=== PATIENT | male | born 1945 | race Caucasian/White ===

== ENCOUNTER 2018-03-13 04:15 | Observation (INO) | payer BC, OTHER ==
[~2018-03-13] VITALS: Ht 172.7 cm; Wt 100.0 kg
[~2018-03-13 04:15] MED LIST: 3 BP MEDS PO; CALC600T34 PO; COUM5TAB PO; CYCL5TAB PO; FISH1000 PO; TYLE3 PO
[2018-03-13 04:29] VITALS: BP 139/80; PULSE 103; RESP 18; TEMP 98.7; O2SAT 95
[2018-03-13] MEDS ORDERED: AMLO5TAB2 PO (04:33)
[2018-03-13] MEDS ORDERED: DOXA1TAB35 PO (04:33)
[2018-03-13] MEDS ORDERED: WARF-23 PO (04:33)
[2018-03-13] MEDS ORDERED: ATOR40TA16 PO (04:33)
[2018-03-13] MEDS ORDERED: LOSA100T PO (04:33)
[2018-03-13 05:00] LABS: AUTOMATED NEUTROPHIL # 4.6 TH/MM3 (1.8-7.7); BASOPHIL % 0.4 % (0.0-2.0); EOSINOPHIL # 0.1 TH/MM3 (0-0.4); EOSINOPHIL % 1.4 % (0.0-4.0); HEMATOCRIT 43.1 % (39.0-51.0); HEMOGLOBIN 13.9 GM/DL (13.0-17.0); LYMPH % 22.1 % (9.0-44.0); LYMPHOCYTE # 1.5 TH/MM3 (1.0-4.8); MEAN CELL VOLUME 94.3 FL (80.0-100.0); MEAN CORPUSCULAR HEMOGLOBIN 30.5 PG (27.0-34.0); MEAN CORPUSCULAR HGB CONC 32.3 % (32.0-36.0); MEAN PLATELET VOLUME 8.7 FL (7.0-11.0); MONO % 8.1 % (0.0-8.0); MONOCYTE # 0.5 TH/MM3 (0-0.9); PLATELET COUNT 159 TH/MM3 (150-450); RED BLOOD COUNT 4.57 MIL/MM3 (4.50-5.90); RED CELL DISTRIBUTION WIDTH 14.4 % (11.6-17.2); WHITE BLOOD COUNT 6.7 TH/MM3 (4.0-11.0)
--- NOTE | 2018-03-13 05:08 | RADRPT ---
EXAM DATE: 03/13/2018 4:57 AM EDT AGE/SEX: 72 years / Male INDICATIONS: Trauma. CLINICAL DATA: This is the patient's initial encounter. Patient reports that signs and symptoms have been present for 1 day and indicates a pain score of 0/10. MEDICAL/SURGICAL HISTORY: . Smoker. . Valve replacement. COMPARISON: No prior exams available for comparison. FINDINGS: The patient is status post sternotomy. The cardiac silhouette is enlarged. There is a prosthetic valv e present. There is a mild to moderate left pleural effusion. There is diffuse indistinctness of the parenchymal markings. CONCLUSION: Cardiomegaly. Mild to moderate left pleural effusion. Indistinctness of the bony vasculature likely related to edema. Electronically signed by: Eladio Garduno MD 03/13/2018 5:06 AM EDT
--- NOTE | 2018-03-13 05:11 | PD ---
HPI Chief Complaint: Fall Time Seen by Provider: 04:35 Travel History International Travel<30 days: No Contact w/Intl Traveler<30days: No Traveled to known affect area: No History of Present Illness HPI The patient is a 72 year old male who presents to the [facility] emergency department with a history of tripping and falling over a rug when going to the bathroom prior to arrival. The patient reports that he struck his head. The patient acquired a laceration to his forehead. The patient denies having any loss of consciousness. He denies having any neck pain, paresthesias, or weakness to his extremities. The patient in fact denies having any pain at all currently. He denies having any chest pain or pressure. He does report having chronic shortness of breath with exertion, however he attributes this to smoking approximately a pack of cigarettes per day. The patient additionally reports that over the last week he has had lower extremity edema that is new. He reports that his purchased [id number] water pills for him which has caused him to urinate more frequently. Otherwise he denies having any dysuria or urinary urgency. On review of systems otherwise, he denies having any known recent fevers, abdominal pain, vomiting, diarrhea, or other neurologic symptoms. [facility] Past Medical History Narrative Medical The patient's past medical history is significant for a valve replacement, chronically anticoagulated on warfarin, history of osteoporosis, history of tobacco abuse, history of hyperlipidemia, history of being hard of hearing, history of hypertension. High Cholesterol: Yes Diminished Hearing: Yes Hypertension: Yes Musculoskeletal: Yes (OSTEOPROSIS AND 6TH VERTIBR) Tetanus Vaccination: > 5 Years Influenza Vaccination: No Past Surgical History Narrative Surgical The patient's past surgical history is significant for a valve replacement Body Medical Devices: VALVE Cardiac Surgery: Yes (ARTIFICIAL VALVE) Social History Alcohol Use: No Tobacco Use: Yes (1 DAY) Substance Use: No Allergies-Medications (Allergen,Severity, Reaction): Coded Allergies: No Known Allergies (Verified Allergy, Unknown, 03/13/18) Reported Meds & Prescriptions Reported Meds & Active Scripts Active Furosemide 40 Mg Tab 40 Mg PO DAILY Reported Atorvastatin (Atorvastatin Calcium) 40 Mg Tab 40 Mg PO HS Losartan (Losartan Potassium) 100 Mg Tab 100 Mg PO DAILY Amlodipine (Amlodipine Besylate) 5 Mg Tab 5 Mg PO DAILY Warfarin 5 Mg Tab 5 Mg PO DAILY Doxazosin (Doxazosin Mesylate) 2 Mg Tab 2 Mg PO DAILY Review of Systems Except as stated in HPI: all other systems reviewed are Neg General / Constitutional: No: Fever Eyes: No: Visual changes HENT: No: Headaches, Congestion, Neck Stiffness, Neck Pain Cardiovascular: Positive: Dyspnea on exertion, Edema, No: Chest Pain or Discomfort Respiratory: Positive: Cough, Shortness of Breath Gastrointestinal: No: Nausea, Vomiting, Diarrhea, Abdominal Pain Genitourinary: No: Dysuria Musculoskeletal: No: Pain Skin: No Rash Neurologic: No: Weakness, Focal Abnormalities, Change in Mentation, Slurred Speech, Sensory Disturbance Psychiatric: No: Depression Endocrine: No: Polydipsia Hematologic/Lymphatic: No: Easy Bruising Physical Exam Narrative General: The patient is a well-developed well-nourished male in no acute distress. Head and Neck exam: Head is normocephalic, with evidence of trauma, pressure bandage in place over the forehead. This was gently removed and the patient was noted to have to the forehead. Bleeding is controlled. The pressure bandage was reapplied in preparation for going to CT. Eyes: EOMI, pupils are equal round and reactive to light. Nose: Midline septum with pink mucous membranes Mouth: Dentition unremarkable. Moist mucus membranes. Posterior oropharynx is not erythematous. No tonsillar hypertrophy. Uvula midline. Airway patent. Neck: No palpable lymphadenopathy. No spinous process tenderness to palpation. No step-off or crepitus. No erythema or ecchymosis. No nuchal rigidity. No thyromegaly. Cardiovascular: Sinus tachycardia in the low 100 without murmurs, gallops, or rubs, however the patient does have an audible click consistent with an artificial valve.. No pulse deficit to the extremities on simultaneous auscultation and palpation of his radial artery. Lungs: Soft expiratory wheezes are audible in bilateral lung gonzalez. No rhonchi or crackles are audible. Diminished breath sounds are noted in the bases. Abdomen: Soft, with abdominal distention related to central obesity, no tenderness on palpation of all 4 quadrants of the abdomen. No tenderness on palpation of McBurney's point. Normal bowel sounds are audible. No guarding, rebound, or rigidity. Extremities: No clubbing or cyanosis. The patient has 2+ pitting edema bilateral lower extremities. 2+ pulses in all 4 extremities. No calf tenderness on palpation. No extremity pain on palpation or with full range of active motion. The patient has no deformity or crepitus. Back: No spinous process tenderness to palpation. No costovertebral angle tenderness to palpation. Neurologic Exam: Cranial nerves 2-12 were intact on exam. Strength is 5/5 in all 4 extremities. No sensory deficits noted. Skin Exam: No rash noted. Intact skin that is warm and dry. Data Data Last Documented VS Vital Signs Date Time Temp Pulse Resp B/P (MAP) Pulse Ox O2 Delivery O2 Flow Rate FiO2 03/13/18 04:33 103 Room Air 03/13/18 04:29 98.7 18 139/80 (99) 95 Orders Orders Electrocardiogram (03/13/18 04:35) Complete Blood Count With Diff (03/13/18 04:35) Comprehensive Metabolic Panel (03/13/18 04:35) Creatine Kinase (Cpk) (03/13/18 04:35) Ckmb (Isoenzyme) Profile (03/13/18 04:35) Troponin I (03/13/18 04:35) Prothrombin Time / Inr (Pt) (03/13/18 04:35) Act Partial Throm Time (Ptt) (03/13/18 04:35) Lipase (03/13/18 04:35) Chest, Single Ap (03/13/18 04:35) Ct Brain W/O Iv Contrast(Rout) (03/13/18 04:35) Iv Access Insert/Monitor (03/13/18 04:35) Ecg Monitoring (03/13/18 04:35) Oximetry (03/13/18 04:35) Ct Cerv Spine W/O Contrast (03/13/18 ) B-Type Natriuretic Peptide (03/13/18 05:02) Albuterol-Ipratropium Neb (Duoneb Neb) (03/13/18 05:15) Cefazolin 2 Gm Premix (Ancef 2 Gm Premix (03/13/18 05:15) Zavv-Xza-Zmhheh (Booster) Inj (Boostrix (03/13/18 05:15) Furosemide Inj (Lasix Inj) (03/13/18 06:15) Nitroglycerin 2% Oint (Nitroglycerin 2% (03/13/18 06:15) Admit Order (Ed Use Only) (03/13/18 06:16) Labs Laboratory Tests Test 03/13/18 04:45 White Blood Count 6.7 TH/MM3 Red Blood Count 4.57 MIL/MM3 Hemoglobin 13.9 GM/DL Hematocrit 43.1 % Mean Corpuscular Volume 94.3 FL Mean Corpuscular Hemoglobin 30.5 PG Mean Corpuscular Hemoglobin Concent 32.3 % Red Cell Distribution Width 14.4 % Platelet Count 159 TH/MM3 Mean Platelet Volume 8.7 FL Neutrophils (%) (Auto) 68.0 % Lymphocytes (%) (Auto) 22.1 % Monocytes (%) (Auto) 8.1 % Eosinophils (%) (Auto) 1.4 % Basophils (%) (Auto) 0.4 % Neutrophils # (Auto) 4.6 TH/MM3 Lymphocytes # (Auto) 1.5 TH/MM3 Monocytes # (Auto) 0.5 TH/MM3 Eosinophils # (Auto) 0.1 TH/MM3 Basophils # (Auto) 0.0 TH/MM3 CBC Comment DIFF FINAL Differential Comment Prothrombin Time 43.0 SEC Prothromb Time International Ratio 4.3 RATIO Activated Partial Thromboplast Time 31.0 SEC Blood Urea Nitrogen 20 MG/DL Creatinine 1.10 MG/DL Random Glucose 131 MG/DL Total Protein 6.0 GM/DL Albumin 3.1 GM/DL Calcium Level 7.9 MG/DL Alkaline Phosphatase 76 U/L Aspartate Amino Transf (AST/SGOT) 35 U/L Alanine Aminotransferase (ALT/SGPT) 36 U/L Total Bilirubin 0.6 MG/DL Sodium Level 136 MEQ/L Potassium Level 4.4 MEQ/L Chloride Level 100 MEQ/L Carbon Dioxide Level 26.8 MEQ/L Anion Gap 9 MEQ/L Estimat Glomerular Filtration Rate 66 ML/MIN Total Creatine Kinase 65 U/L Troponin I 0.06 NG/ML B-Type Natriuretic Peptide 2159 PG/ML Lipase 68 U/L MDM Medical Decision Making Medical Screen Exam Complete: Yes Emergency Medical Condition: Yes Medical Record Reviewed: Yes Differential Diagnosis Intracranial hemorrhage, versus cervical spine trauma, versus forehead laceration Regarding the patient's lower extremity edema, differential diagnosis includes congestive heart failure, versus cor pulmonale related to COPD Narrative Course During the course of the patient's emergency department visit, the patient's history, examination, and differential diagnosis were reviewed with the patient. The patient was placed on a mems engineer with oximetry and frequent blood pressure monitoring. The patient had IV access obtained and blood work sent for analysis. The patient had an EKG done on arrival that shows a sinus tachycardia rate of 103, QRS duration 130 ms, QTC [address] segment elevation is noted. T waves are inverted in lead I, aVL. The patient was initially provided An update to his tetanus, Ancef 2 g IV. The patient was given a DuoNeb. The patient's laboratory studies were reviewed and remarkable for 03/13/18 04:45 Total Protein 6.0 L, Albumin 3.1 L, Calcium Level 7.9 L, Alkaline Phosphatase 76 , Aspartate Amino Transf (AST/SGOT) 35, Alanine Aminotransferase (ALT/SGPT) 36, Total Bilirubin 0.6. The patient's CPK is 65, troponin I is elevated at 0.6, BNP is 2159, lipase 68. INR is 4.3. The patient's Coumadin will be held. Radiology studies were reviewed and remarkable for Last Impressions Head CT 03/13/18434 Signed Impressions: CONCLUSION: 1. No acute intracranial abnormalities seen. 2. Age-related atrophy and old lacunar infarct. 3. Right frontal scalp injury. Chest X-Ray 03/13/18434 Signed Impressions: CONCLUSION: Cardiomegaly. Mild to moderate left pleural effusion. Indistinctness of the bony vasculature likely related to edema. Cervical Spine CT 03/13/18 0000 Signed Impressions: CONCLUSION: 1. No acute abnormality seen. 2. Degenerative change. The patient is noted to have for observation regarding his head injury and supratherapeutic INR, as well as his congestive heart failure exacerbation and diuresis. The patient's results were discussed with the patient, including the plan of care. I explained that further testing and/ or monitoring is indicated based on the patient's history, examination, and/ or laboratory findings. Therefore, I recommended admission for additional evaluation. The patient expressed understanding and was agreeable with this plan. The patient was admitted to the hospital in stable condition and sent to a bed under the care of the [facility] service. Physician Communication Physician Communication The patient's case including history, pertinent physical examination findings, and laboratory studies were discussed with Dr. Artis. It was agreed that the patient would be admitted to the hospitalist service. Diagnosis Primary Impression: Acute exacerbation of congestive heart failure Qualified Codes: I50.9 - Heart failure, unspecified Additional Impressions: Head injury Qualified Codes: S09.90XA - Unspecified injury of head, initial encounter Facial laceration Qualified Codes: S01.81XA - Laceration without foreign body of other part of head, initial encounter Supratherapeutic INR Admitting Information Admitting Physician Requests: Observation Scripts Furosemide (Furosemide) 40 Mg Tab 40 MG PO DAILY for edema , #30 TAB 0 Refills Prov: Amalia Hagan MD 03/13/18 Mandi Bowling MD Mar 13, 2018 05:11
[2018-03-13 05:13] LABS: INTERNATIONAL NORMALIZED RATIO 4.3 RATIO
[2018-03-13] MEDS ORDERED: DIPHTH/TETANUS/ACEL PERTUSSIS (BOOSTER) 0.5 ML VIAL/PFS IM ONE (05:15)
[2018-03-13] MEDS ORDERED: RESP: ALBUTEROL 2.5 MG/IPRATROPIUM 0.5 MG NEB (SCH) NEB ONE (05:15)
[2018-03-13] MEDS ORDERED: ceFAZolin 2 GM PREMIX 50 ML IV ONE (05:15)
[2018-03-13 05:29] LABS: ALBUMIN 3.1 GM/DL (3.4-5.0); ALT (GPT) 36 U/L (12-78); AST (GOT) 35 U/L (15-37); BICARBONATE 26.8 MEQ/L (21.0-32.0); BLOOD UREA NITROGEN 20 MG/DL (7-18); CALCIUM 7.9 MG/DL (8.5-10.1); CHLORIDE 100 MEQ/L (98-107); GLOMERULAR FILTRATION RATE 66 ML/MIN (>89); GLUCOSE,RANDOM 131 MG/DL (74-106); SODIUM (NA) 136 MEQ/L (136-145)
[2018-03-13 05:31] LABS: ALKALINE PHOSPHATASE 76 U/L (45-117); TOTAL BILIRUBIN ADULT 0.6 MG/DL (0.2-1.0); TROPONIN I 0.06 NG/ML (0.02-0.05)
--- NOTE | 2018-03-13 05:39 | RADRPT ---
EXAM DATE: 03/13/2018 5:09 AM EDT AGE/SEX: 72 years / Male INDICATIONS: Trauma; fall. CLINICAL DATA: This is the patient's initial encounter. Patient reports that signs and symptoms have been present for 1 day and indicates a pain score of 4/10. MEDICAL/SURGICAL HISTORY: Cardiovascular disease. Hypertension. None. RADIATION DOSE: 56.35 CTDI (mGy) COMPARISON: No prior exams available for comparison. TECHNIQUE: CT of the head without contrast. Using automated exposure control and adjustment of the mA and/or kV according to patient size, radiation dose was kept as low as reasonably achievable to ob tain optimal diagnostic quality images. DICOM format image data is available electronically for revi ew and comparison. FINDINGS: Cerebrum: The ventricles and cortical sulci are widened. There is a linear low density seen adjacent to the right caudate head likely related to an old lacunar infarct. There appears to be an old lacun ar infarct at the anterior left basal ganglia. No evidence of midline shift, mass lesion, hemorrhag e or acute infarction. No extraaxial fluid collections are seen. Posterior Fossa: The cerebellum and brainstem are intact. The 4th ventricle is midline. The cerebe llopontine angle is unremarkable. Extracranial: The visualized portion of the orbits is intact. There is a superior right frontal scal p injury. Skull: The calvaria is intact. No evidence of skull fracture. CONCLUSION: 1. No acute intracranial abnormalities seen. 2. Age-related atrophy and old lacunar infarct. 3. Right frontal scalp injury. Electronically signed by: Eladio Garduno MD 03/13/2018 5:38 AM EDT
--- NOTE | 2018-03-13 05:39 | PD ---
Physical Exam Date Seen by Provider: Mar 13, 2018 Time Seen by Provider: 05:37 Narrative Skin: Patient has a 4 cm laceration to the anterior forehead up into the scalp. Patient has a small hematoma. No step-off. Neurovascular intact. Data Data Last Documented VS Vital Signs Date Time Temp Pulse Resp B/P (MAP) Pulse Ox O2 Delivery O2 Flow Rate FiO2 03/13/18 04:33 103 Room Air 03/13/18 04:29 98.7 18 139/80 (99) 95 Orders Orders Electrocardiogram (03/13/18 04:35) Complete Blood Count With Diff (03/13/18 04:35) Comprehensive Metabolic Panel (03/13/18 04:35) Creatine Kinase (Cpk) (03/13/18 04:35) Ckmb (Isoenzyme) Profile (03/13/18 04:35) Troponin I (03/13/18 04:35) Prothrombin Time / Inr (Pt) (03/13/18 04:35) Act Partial Throm Time (Ptt) (03/13/18 04:35) Lipase (03/13/18 04:35) Chest, Single Ap (03/13/18 04:35) Ct Brain W/O Iv Contrast(Rout) (03/13/18 04:35) Iv Access Insert/Monitor (03/13/18 04:35) Ecg Monitoring (03/13/18 04:35) Oximetry (03/13/18 04:35) Ct Cerv Spine W/O Contrast (03/13/18 ) B-Type Natriuretic Peptide (03/13/18 05:02) Albuterol-Ipratropium Neb (Duoneb Neb) (03/13/18 05:15) Cefazolin 2 Gm Premix (Ancef 2 Gm Premix (03/13/18 05:15) Msbp-Xtz-Unufhg (Booster) Inj (Boostrix (03/13/18 05:15) Labs Laboratory Tests Test 03/13/18 04:45 White Blood Count 6.7 TH/MM3 Red Blood Count 4.57 MIL/MM3 Hemoglobin 13.9 GM/DL Hematocrit 43.1 % Mean Corpuscular Volume 94.3 FL Mean Corpuscular Hemoglobin 30.5 PG Mean Corpuscular Hemoglobin Concent 32.3 % Red Cell Distribution Width 14.4 % Platelet Count 159 TH/MM3 Mean Platelet Volume 8.7 FL Neutrophils (%) (Auto) 68.0 % Lymphocytes (%) (Auto) 22.1 % Monocytes (%) (Auto) 8.1 % Eosinophils (%) (Auto) 1.4 % Basophils (%) (Auto) 0.4 % Neutrophils # (Auto) 4.6 TH/MM3 Lymphocytes # (Auto) 1.5 TH/MM3 Monocytes # (Auto) 0.5 TH/MM3 Eosinophils # (Auto) 0.1 TH/MM3 Basophils # (Auto) 0.0 TH/MM3 CBC Comment DIFF FINAL Differential Comment Prothrombin Time 43.0 SEC Prothromb Time International Ratio 4.3 RATIO Activated Partial Thromboplast Time 31.0 SEC Blood Urea Nitrogen 20 MG/DL Creatinine 1.10 MG/DL Random Glucose 131 MG/DL Total Protein 6.0 GM/DL Albumin 3.1 GM/DL Calcium Level 7.9 MG/DL Alkaline Phosphatase 76 U/L Aspartate Amino Transf (AST/SGOT) 35 U/L Alanine Aminotransferase (ALT/SGPT) 36 U/L Total Bilirubin 0.6 MG/DL Sodium Level 136 MEQ/L Potassium Level 4.4 MEQ/L Chloride Level 100 MEQ/L Carbon Dioxide Level 26.8 MEQ/L Anion Gap 9 MEQ/L Estimat Glomerular Filtration Rate 66 ML/MIN Total Creatine Kinase 65 U/L Troponin I 0.06 NG/ML Lipase 68 U/L [facility] Medical Record Reviewed: Yes Supervised Visit with ROSANNE: Yes Interpretation(s) Last 24 hours Impressions Chest X-Ray 03/13/18 2988 Signed Impressions: CONCLUSION: Cardiomegaly. Mild to moderate left pleural effusion. Indistinctness of the bony vasculature likely related to edema. Laboratory Tests Test 03/13/18 04:45 White Blood Count 6.7 TH/MM3 Red Blood Count 4.57 MIL/MM3 Hemoglobin 13.9 GM/DL Hematocrit 43.1 % Mean Corpuscular Volume 94.3 FL Mean Corpuscular Hemoglobin 30.5 PG Mean Corpuscular Hemoglobin Concent 32.3 % Red Cell Distribution Width 14.4 % Platelet Count 159 TH/MM3 Mean Platelet Volume 8.7 FL Neutrophils (%) (Auto) 68.0 % Lymphocytes (%) (Auto) 22.1 % Monocytes (%) (Auto) 8.1 % Eosinophils (%) (Auto) 1.4 % Basophils (%) (Auto) 0.4 % Neutrophils # (Auto) 4.6 TH/MM3 Lymphocytes # (Auto) 1.5 TH/MM3 Monocytes # (Auto) 0.5 TH/MM3 Eosinophils # (Auto) 0.1 TH/MM3 Basophils # (Auto) 0.0 TH/MM3 CBC Comment DIFF FINAL Differential Comment Prothrombin Time 43.0 SEC Prothromb Time International Ratio 4.3 RATIO Activated Partial Thromboplast Time 31.0 SEC Blood Urea Nitrogen 20 MG/DL Creatinine 1.10 MG/DL Random Glucose 131 MG/DL Total Protein 6.0 GM/DL Albumin 3.1 GM/DL Calcium Level 7.9 MG/DL Alkaline Phosphatase 76 U/L Aspartate Amino Transf (AST/SGOT) 35 U/L Alanine Aminotransferase (ALT/SGPT) 36 U/L Total Bilirubin 0.6 MG/DL Sodium Level 136 MEQ/L Potassium Level 4.4 MEQ/L Chloride Level 100 MEQ/L Carbon Dioxide Level 26.8 MEQ/L Anion Gap 9 MEQ/L Estimat Glomerular Filtration Rate 66 ML/MIN Total Creatine Kinase 65 U/L Troponin I 0.06 NG/ML Lipase 68 U/L Differential Diagnosis MDM: High Differential diagnoses: Fracture, sprain, strain, dislocation, contusion, neurovascular injury Last 24 hours Impressions Chest X-Ray 03/13/18 043 Signed Impressions: CONCLUSION: Cardiomegaly. Mild to moderate left pleural effusion. Indistinctness of the bony vasculature likely related to edema. Narrative Course Patient's lacerations closed sutures Procedures Procedure Narrative LACERATION LOCATION: Anterior forehead into the scalp LENGTH: 4 cm NUMBER OF STITCHES/DAMARIS: 8 REPAIR: The area of the laceration was prepped with Betadine and sterilely draped. The laceration was infiltrated with 1% lidocaine with epinephrine. The wound was copiously irrigated and explored without evidence of foreign body , tendon injury or neurovascular injury. The wound was closed using 5-0 Prolene. This was a simple single layer repair. A sterile dressing was applied. The patient was advised to keep the dressing clean and dry. Patient tolerated the procedure well. Condition: Stable Niles De Leon Mar 13, 2018 05:39
--- NOTE | 2018-03-13 05:43 | RADRPT ---
EXAM DATE: 03/13/2018 5:13 AM EDT AGE/SEX: 72 years / Male INDICATIONS: Trauma; fall. CLINICAL DATA: This is the patient's initial encounter. Patient reports that signs and symptoms have been present for 1 day and indicates a pain score of 4/10. MEDICAL/SURGICAL HISTORY: Cardiovascular disease. Hypertension. None. RADIATION DOSE: 22.68 CTDI (mGy) COMPARISON: No prior exams available for comparison. TECHNIQUE: Contiguous axial images were obtained using helical multirow detector technique. The vol umetric data was post-processed with multiplanar reconstruction in oblique axial, sagittal, and coron al planes. Using automated exposure control and adjustment of the mA and/or kV according to patient s ize, radiation dose was kept as low as reasonably achievable to obtain optimal diagnostic quality watson ges. DICOM format image data is available electronically for review and comparison. FINDINGS: Vertebrae: Normal vertebral body height. Alignment: Normal. No subluxation. C2-3: The bony spinal canal is normal in size. No evidence of disc bulge or herniation. The neural foramina are bilaterally patent. There is left facet hypertrophy. C3-4: The bony spinal canal is normal in size. No evidence of disc bulge or herniation. The neural foramina are bilaterally patent. There is mild facet hypertrophy. C4-5: The disc demonstrates decreased height. There is mild disc bulge. There is facet and uncoverte bral hypertrophy. The neural foramina are patent bilaterally. C5-6: The disc demonstrates decreased height. There is moderate diffuse disc bulge and osteophytic r idging. There is uncovertebral and facet hypertrophy. There is narrowing of the neural foramina espec ially on the right. C6-7: Minimal disc bulge. This stenosis is not seen. There is uncovertebral hypertrophy seen on the right. The neural foramina are patent bilaterally. C7-T1: The bony spinal canal is normal in size. No evidence of disc bulge or herniation. The neura l foramina are bilaterally patent. CONCLUSION: 1. No acute abnormality seen. 2. Degenerative change. Electronically signed by: Eladio Garduno MD 03/13/2018 5:42 AM EDT
[2018-03-13] MEDS ORDERED: FUROSEMIDE 40 MG/4 ML VIAL IV PUSH ONE (06:15)
[2018-03-13] MEDS ORDERED: NITROGLYCERIN 2% OINT 1 GM PACKET TOPICAL ONE (06:15)
[2018-03-13] MEDS ORDERED: SODIUM CHLORIDE 0.9% FLUSH 10 ML FLUSH IV FLUSH PRN (06:30)
[2018-03-13] MEDS ORDERED: RESP: ALBUTEROL 2.5 MG/IPRATROPIUM 0.5 MG NEB (PRN) NEB (06:30)
[2018-03-13 07:23] VITALS: BP 123/82; PULSE 111; RESP 20; TEMP 97.8; O2SAT 96
--- NOTE | 2018-03-13 08:31 | HHI.HP ---
HPI Service [facility] Hospitalists Primary Care Physician Ulices Jones MD Admission Diagnosis CHF, head injury, elevated inr Diagnoses: Chief Complaint: fall Travel History International Travel<30 Days: No Contact w/Intl Traveler <30 Da: No Traveled to Known Affected Are: No History of Present Illness The patient is a 72 year old male with past medical history of aortic valve replacement, hypertension, BPH who presents to the [facility] emergency department with a history of tripping and falling over a rug when going to the bathroom prior to arrival. The patient reports that he struck his head. The patient acquired a laceration to his forehead. The patient denies having any loss of consciousness. He denies having any neck pain, paresthesias, or weakness to his extremities. The patient in fact denies having any pain at all currently. He denies having any chest pain or pressure. He does report having chronic shortness of breath with exertion, however he attributes this to smoking approximately a pack of cigarettes per day. The patient additionally reports that over the last week he has had lower extremity edema that is new. He reports that his purchased [id number] water pills for him which has caused him to urinate more frequently. Otherwise he denies having any dysuria or urinary urgency. On review of systems otherwise, he denies having any known recent fevers, abdominal pain, vomiting, diarrhea, or other neurologic symptoms. He was also noted with some shortness of breath and worsening lower extremity edema. Review of Systems Except as stated in HPI: all other systems reviewed are Neg Past Family Social History Past Medical History HTN, HLD, artificial aortic valve replacement Past Surgical History aortic valve replacement Reported Medications Last Impressions Head CT 03/13/18 264 Signed Impressions: CONCLUSION: 1. No acute intracranial abnormalities seen. 2. Age-related atrophy and old lacunar infarct. 3. Right frontal scalp injury. Chest X-Ray 03/13/18434 Signed Impressions: CONCLUSION: Cardiomegaly. Mild to moderate left pleural effusion. Indistinctness of the bony vasculature likely related to edema. Cervical Spine CT 03/13/18 0000 Signed Impressions: CONCLUSION: 1. No acute abnormality seen. 2. Degenerative change. Allergies: Coded Allergies: No Known Allergies (Verified Allergy, Unknown, 03/13/18) Family History Mother had brain aneurism in her 80s had rheumatic fever as a child Father alcoholic Grandmother diabetes Social History Smoking less 1 PPD EtOH occasionally none in years Denies illicit drug use Physical Exam Vital Signs Vital Signs Date Time Temp Pulse Resp B/P (MAP) Pulse Ox O2 Delivery O2 Flow Rate FiO2 03/13/18 07:23 97.8 111 20 123/82 (96) 96 Room Air 03/13/18 07:15 117 20 96 Room Air 03/13/18 04:33 103 Room Air 03/13/18 04:29 98.7 103 18 139/80 (99) 95 Physical Exam GENERAL: This is a well-nourished, well-developed patient, in no apparent distress. SKIN: No rashes, ecchymoses or lesions. Cool and dry. HEAD: Atraumatic. Normocephalic. No temporal or scalp tenderness. EYES: Pupils equal round and reactive. Extraocular motions intact. No scleral icterus. No injection or drainage. ENT: Nose without bleeding, purulent drainage or septal hematoma. Throat without erythema, tonsillar hypertrophy or exudate. Uvula midline. Airway patent. NECK: Trachea midline. No JVD or lymphadenopathy. Supple, nontender, no meningeal signs. CARDIOVASCULAR: Regular rate and rhythm, mechanical valve associated murmur, without gallops, or rubs. RESPIRATORY: Clear to auscultation. Breath sounds equal bilaterally. No wheezes , rales, or rhonchi. GASTROINTESTINAL: Abdomen soft, non-tender, nondistended. No hepato-splenomegaly , or palpable masses. No guarding. MUSCULOSKELETAL: Extremities without clubbing, cyanosis. 2+ bilateral LE edema. No joint tenderness, effusion, or edema noted. No calf tenderness. Negative Homans sign bilaterally. NEUROLOGICAL: Awake and alert. Cranial nerves II through XII intact. Motor and sensory grossly within normal limits. Five out of 5 muscle strength in all muscle groups. Normal speech. Laboratory Laboratory Tests Test 03/13/18 04:45 White Blood Count 6.7 Red Blood Count 4.57 Hemoglobin 13.9 Hematocrit 43.1 Mean Corpuscular Volume 94.3 Mean Corpuscular Hemoglobin 30.5 Mean Corpuscular Hemoglobin Concent 32.3 Red Cell Distribution Width 14.4 Platelet Count 159 Mean Platelet Volume 8.7 Neutrophils (%) (Auto) 68.0 Lymphocytes (%) (Auto) 22.1 Monocytes (%) (Auto) 8.1 Eosinophils (%) (Auto) 1.4 Basophils (%) (Auto) 0.4 Neutrophils # (Auto) 4.6 Lymphocytes # (Auto) 1.5 Monocytes # (Auto) 0.5 Eosinophils # (Auto) 0.1 Basophils # (Auto) 0.0 CBC Comment DIFF FINAL Differential Comment Prothrombin Time 43.0 Prothromb Time International Ratio 4.3 Activated Partial Thromboplast Time 31.0 Blood Urea Nitrogen 20 Creatinine 1.10 Random Glucose 131 Total Protein 6.0 Albumin 3.1 Calcium Level 7.9 Alkaline Phosphatase 76 Aspartate Amino Transf (AST/SGOT) 35 Alanine Aminotransferase (ALT/SGPT) 36 Total Bilirubin 0.6 Sodium Level 136 Potassium Level 4.4 Chloride Level 100 Carbon Dioxide Level 26.8 Anion Gap 9 Estimat Glomerular Filtration Rate 66 Total Creatine Kinase 65 Troponin I 0.06 B-Type Natriuretic Peptide 2159 Lipase 68 Result Diagram: 03/13/1844403/13/18444 Imaging Last Impressions Head CT 03/13/18434 Signed Impressions: CONCLUSION: 1. No acute intracranial abnormalities seen. 2. Age-related atrophy and old lacunar infarct. 3. Right frontal scalp injury. Chest X-Ray 03/13/18434 Signed Impressions: CONCLUSION: Cardiomegaly. Mild to moderate left pleural effusion. Indistinctness of the bony vasculature likely related to edema. Cervical Spine CT 03/13/18 0000 Signed Impressions: CONCLUSION: 1. No acute abnormality seen. 2. Degenerative change. Caprini VTE Risk Assessment Caprini VTE Risk Assessment: Mod/High Risk (score >= 2) Caprini Risk Assessment Model Point Value = 1 Point Value = 2 Point Value = 3 Point Value = 5 Age 41-60 Minor surgery BMI > 25 kg/m2 Swollen legs Varicose veins or History of unexplained or recurrent spontaneous Oral contraceptives or hormone replacement Sepsis (< 1 month) Serious lung disease, including pneumonia (< 1 month) Abnormal pulmonary function Acute myocardial infarction Congestive heart failure (< 1 month) History of inflammatory bowel disease Medical patient at bed rest Age 61-74 Arthroscopic surgery Major open surgery (> 45 min) Laparoscopic surgery (> 45 min) Malignancy Confined to bed (> 72 hours) Immobilizing plaster cast Central venous access Age >= 75 History of VTE Family history of VTE Factor V Leiden Prothrombin [id number] Lupus anticoagulant Anticardiolipin antibodies Elevated serum homocysteine Heparin-induced thrombocytopenia Other congenital or acquired thrombophilia Stroke (< 1 month) Elective arthroplasty Hip, pelvis, or leg fracture Acute spinal cord injury (< 1 month) Prophylaxis Regimen Total Risk Factor Score Risk Level Prophylaxis Regimen 0-1 Low Early ambulation 2 Moderate Order ONE of the following: *Sequential Compression Device (SCD) *Heparin 5000 units SQ BID 3-4 Higher Order ONE of the following medications: *Heparin 5000 units SQ TID *Enoxaparin/Lovenox 40 mg SQ daily (WT < 150 kg, CrCl > 30 mL/min) *Enoxaparin/Lovenox 30 mg SQ daily (WT < 150 kg, CrCl > 10-29 mL/min) *Enoxaparin/Lovenox 30 mg SQ BID (WT < 150 kg, CrCl > 30 mL/min) AND/OR *Sequential Compression Device (SCD) 5 or more Highest Order ONE of the following medications: *Heparin 5000 units SQ TID (Preferred with Epidurals) *Enoxaparin/Lovenox 40 mg SQ daily (WT < 150 kg, CrCl > 30 mL/min) *Enoxaparin/Lovenox 30 mg SQ daily (WT < 150 kg, CrCl > 10-29 mL/min) *Enoxaparin/Lovenox 30 mg SQ BID (WT < 150 kg, CrCl > 30 mL/min) AND *Sequential Compression Device (SCD) Assessment and Plan Assessment and Plan Pleasant 72-year-old male Status post mechanical fall CT head no acute findings Monitor Likely CHF by clinical presentation patient with shortness of breath lower extremity edema Patient also has a history of aortic valve replacement Patient was started on Lasix 40 mg IV twice daily with significant improvement He is saturating well while on room air DVT ppx lovenox Patient wants to go home. Discharge patient home to follow-up as outpatient with PCP and consultants. Patient to have 2D echo as outpatient Discharge plan: Discharge patient to home, stable condition at discharge, to follow-up as outpatient with PCP and consultants. Patient to have 2D echo as outpatient Medications per medication reconciliation's Diet healthy heart diet Activity ad poncho. as tolerated Time spent at discharge more than 30 minutes coordinating discharge Discussed Condition With pt, nurse Amalia Hagan MD Mar 13, 2018 08:31
[2018-03-13] MEDS ORDERED: FURO40TA PO (08:39)
--- NOTE | 2018-03-13 08:41 | HHI.DCPOC ---
Discharge Care Plan Diagnosis: (1) HTN (hypertension) (2) CHF (congestive heart failure) Goals to Promote Your Health * To prevent worsening of your condition and complications * To maintain your health at the optimal level Directions to Meet Your Goals Take your medications as prescribed Follow your dietary instruction Follow activity as directed Keep your appointments as scheduled Take your immunizations and boosters as scheduled If your symptoms worsen call your PCP, if no PCP go to Urgent Care Center or Emergency Room Smoking is Dangerous to Your Health. Avoid second hand smoke Call the 24-hour hour crisis hotline for domestic abuse at Amalia Hagan MD Mar 13, 2018 08:41
[2018-03-13] MEDS ORDERED: SODIUM CHLORIDE 0.9% FLUSH 10 ML FLUSH IV FLUSH SCH (09:00)
[2018-03-13] MEDS ORDERED: DOXAZOSIN MESYLATE 2 MG TAB PO SCH (09:00)
[2018-03-13] MEDS ORDERED: FUROSEMIDE 40 MG/4 ML VIAL IVP SCH (09:00)
[2018-03-13] MEDS ORDERED: LOSARTAN 50 MG TAB PO SCH (09:00)
[2018-03-13] MEDS ORDERED: amLODIPine BESYLATE 5 MG TAB PO SCH (09:00)
[2018-03-13] MEDS ORDERED: POTASSIUM CHLORIDE 10 MEQ CONTROLLED RELEASE TAB PO SCH (09:00)
[2018-03-13 09:43] VITALS: BP 130/77; TEMP 97.8
--- NOTE | 2018-03-13 13:28 | EKG ---
Date Performed: 03/13/2018 Time Performed: 04:34:15 PTAGE: 72 years EKG: Baseline artifact present probably SINUS TACHYCARDIA With first degree A-V block LEFT ANTE RIOR FASCICULAR BLOCK POSSIBLE ANTERIOR MYOCARDIAL INFARCTION Compared to prior electrocardiogram, Ra te has increased. CA interval has probably increased also as has nonspecific STT wave changes. NO PREVIOUS TRACING DOCTOR: Ritchie Rivas Interpretating Date/Time 03/13/2018 13:27:54
[2018-03-13] MEDS ORDERED: ATORVASTATIN 40 MG TAB PO SCH (21:00)
== END 2018-03-13 09:43 | disposition home or self-care (01) ==
LOC: NEPC 04:15 → NEDA 06:19
PROVIDERS: ADMIT Hospitalist; ATTEND Hospitalist
DX: I50.9 Heart failure, unspecified (principal); I11.0 Hypertensive heart disease with heart failure; S01.81XA Laceration without foreign body of other part of head, initial encounter; S09.90XA Unspecified injury of head, initial encounter; R79.1 Abnormal coagulation profile; E78.5 Hyperlipidemia, unspecified; E78.00 Pure hypercholesterolemia, unspecified; H91.90 Unspecified hearing loss, unspecified ear; M81.0 Age-related osteoporosis without current pathological fracture; N40.0 Benign prostatic hyperplasia without lower urinary tract symptoms; Z79.01 Long term (current) use of anticoagulants; Z95.2 Presence of prosthetic heart valve; Z83.3 Family history of diabetes mellitus; R00.0 Tachycardia, unspecified; W01.10XA Fall on same level from slipping, tripping and stumbling with subsequent striking against unspecified object, initial encounter; Y92.002 Bathroom of unspecified non-institutional (private) residence as the place of occurrence of the external cause
CPT/HCPCS: 12013; 70450; 71045; 72125; 80053; 82550; 83690; 83880; 84484; 85025; 85610; 85730; 90471; 90715; 93005; 94664; 96374; 96375; 96376; 99285; G0378; J0690; J1940